=== PATIENT | male | born 1960 | race Asian ===

== ENCOUNTER 2020-09-30 09:37 | Outpatient (REF) | payer OTHER, SELFPAY ==
[2020-09-30 10:06] LABS: MANUAL DIFF FLAG NO
[2020-09-30 10:16] LABS: Basophils Percent Auto 0.2 % (0-2); Eosinophils Absolute Auto 0.1 X10*3/uL (0.0-0.4); Eosinophils Percent Auto 1.2 % (0-4); Hematocrit 41.2 % (42-52); Hemoglobin 13.8 g/dl (14.0-18.0); Imm Gran Abs Auto 0.02 X10*3/uL (0.00-0.03); Imm Gran Pct Auto 0.3 % (0.0-0.4); Lymphocytes Absolute Auto 2.1 X10*3/uL (1.2-4.9); Lymphocytes Percent Auto 33.3 % (20-40); Mean Corpuscular HGB Conc 33.5 g/dl (31.0-36.0); Mean Corpuscular Hemoglobin 30.1 pg (27.0-33.0); Monocytes Absolute Auto 0.6 X10*3/uL (0.1-1.2); Monocytes Percent Auto 9.2 % (2-11); Neutrophils Absolute Auto 3.6 X10*3/uL (2.0-8.3); Neutrophils Percent Auto 55.8 % (45-73); Platelet Count 204 X10*3/uL (160-400); Red Blood Count 4.58 X10*6/uL (4.60-5.80); White Blood Count 6.4 X10*3/uL (4.8-10.8)
[2020-09-30 10:34] LABS: Glucose Urine UA NEG (NEG); Leukocyte Esterase Urine NEG (NEG); Nitrite Urine NEG (NEG); PH 6.5 (5.0-8.0); Urine Blood NEG (NEG); Urine Ketones NEG (NEG); Urine Protein NEG (NEG-TRACE)
[2020-09-30 10:35] LABS: Alanine Aminotransferase 31 U/L (0-40); Albumin Level 4.2 g/dL (3.5-5.0); Alkaline Phosphatase 63 U/L (39-117); Anion Gap 10 (12-20); Aspartate Amino Transferase 23 U/L (5-37); Bilirubin Total 0.6 mg/dL (0.0-1.0); Blood Urea Nitrogen 15 mg/dL (9-16); Calcium 8.5 mg/dL (8.4-10.2); Carbon Dioxide 30 mmol/L (22-29); Chloride 103 mmol/L (96-108); Cholesterol 153 mg/dL; Estimated Glomerular Filt Rate > 60; Glucose Fasting 111 mg/dL (60-99); HDL Cholesterol 33 mg/dL; LDL Cholesterol Calculated 52 mg/dl; Potassium 4.3 mmol/l (3.3-5.1); Sodium 139 mmol/L (135-145); Total Protein 7.2 g/dL (6.5-8.0); Triglycerides 341 mg/dL
[2020-09-30 10:42] LABS: Appearance Urine CLEAR; Color Urine YELLOW
[2020-09-30 10:59] LABS: Prostate Specific Antigen Scr 0.99 ng/mL (<0.05-4.0)
[2020-09-30 11:02] LABS: TSH reflex Free T4 1.46 mIU/mL (0.32-4.0); Vitamin D 25-OH Total 33.3 ng/mL (>30)
== END 2020-09-30 09:38 | disposition home or self-care (01) ==
LOC: HO.LAB 09:37
PROVIDERS: PCP Internal Medicine; Visit Provider Internal Medicine
DX: J30.1 Allergic rhinitis due to pollen (principal); K59.00 Constipation, unspecified; E78.00 Pure hypercholesterolemia, unspecified; E55.9 Vitamin D deficiency, unspecified; I10 Essential (primary) hypertension; Z00.00 Encounter for general adult medical examination without abnormal findings; R73.01 Impaired fasting glucose
CPT/HCPCS: 36415; 80053; 80061; 81003; 82306; 84153; 84443; 85025

== ENCOUNTER 2021-12-01 08:41 | Outpatient (REF) | payer OTHER, SELFPAY ==
[2021-12-01 09:20] LABS: MANUAL DIFF FLAG NO
[2021-12-01 09:45] LABS: Basophils Percent Auto 0.1 % (0-2); Eosinophils Percent Auto 0.6 % (0-4); Hematocrit 42.6 % (42.0-52.0); Hemoglobin 14.4 g/dl (14.0-18.0); Imm Gran Abs Auto 0.01 X10*3/uL (0.00-0.03); Imm Gran Pct Auto 0.1 % (0.0-0.4); Lymphocytes Absolute Auto 2.5 X10*3/uL (1.2-4.9); Lymphocytes Percent Auto 35.5 % (20-40); Mean Corpuscular HGB Conc 33.8 g/dl (31.0-36.0); Mean Corpuscular Hemoglobin 30.3 pg (27.0-33.0); Mean Corpuscular Volume 89.5 fL (80.0-98.0); Mean Platelet Volume 8.1 fL (9.4-12.4); Monocytes Absolute Auto 0.5 X10*3/uL (0.1-1.2); Monocytes Percent Auto 7.4 % (2-11); Neutrophils Percent Auto 56.3 % (45-73); Platelet Count 200 X10*3/uL (160-400); Red Blood Count 4.76 X10*6/uL (4.60-5.80); Red Cell Distribution Width 12.2 % (11.0-16.0); White Blood Count 7.1 X10*3/uL (4.8-10.8)
[2021-12-01 10:00] LABS: Estimated Average Glucose 123 mg/dL; Hemoglobin A1c % 5.9 %
[2021-12-01 10:20] LABS: Alanine Aminotransferase 22 U/L (0-40); Albumin Level 4.4 g/dL (3.5-5.0); Alkaline Phosphatase 64 U/L (39-117); Anion Gap 15 (12-20); Aspartate Amino Transferase 18 U/L (5-37); Bilirubin Total 0.9 mg/dL (0.0-1.0); Blood Urea Nitrogen 17 mg/dL (9-16); Calcium 9.3 mg/dL (8.4-10.2); Carbon Dioxide 25 mmol/L (22-29); Chloride 103 mmol/L (96-108); Cholesterol 169 mg/dL; Estimated Glomerular Filt Rate > 60; Glucose Fasting 115 mg/dL (60-99); HDL Cholesterol 32 mg/dL; Potassium 4.4 mmol/L (3.3-5.1); Sodium 139 mmol/L (135-145); Total Protein 7.7 g/dL (6.5-8.0); Triglycerides 418 mg/dL
[2021-12-01 10:27] LABS: Appearance Urine HAZY; Color Urine YELLOW; Glucose Urine UA NEG (NEG); Leukocyte Esterase Urine NEG (NEG); Nitrite Urine NEG (NEG); PH 5.5 (5.0-8.0); Specific Gravity - Urine >= 1.030 (1.005-1.025); Urine Blood NEG (NEG); Urine Ketones NEG (NEG); Urine Protein NEG (NEG-TRACE)
[2021-12-01 10:30] LABS: TSH reflex Free T4 2.03 uIU/mL (0.32-4.0); Vitamin D 25-OH Total 27.9 ng/mL (>30)
== END 2021-12-01 08:42 | disposition home or self-care (01) ==
LOC: HO.LAB 08:41
PROVIDERS: PCP Internal Medicine; Visit Provider Internal Medicine
DX: E78.00 Pure hypercholesterolemia, unspecified (principal); E55.9 Vitamin D deficiency, unspecified; I10 Essential (primary) hypertension; R73.01 Impaired fasting glucose
CPT/HCPCS: 36415; 80053; 80061; 81003; 82306; 83036; 84443; 85025

== ENCOUNTER 2022-04-06 09:48 | Outpatient (REF) | payer OTHER, SELFPAY ==
[2022-04-06 10:06] LABS: MANUAL DIFF FLAG NO
[2022-04-06 10:31] LABS: Basophils Percent Auto 0.2 % (0-2); Eosinophils Absolute Auto 0.1 X10*3/uL (0.0-0.4); Eosinophils Percent Auto 0.9 % (0-4); Hematocrit 39.5 % (42.0-52.0); Hemoglobin 13.8 g/dl (14.0-18.0); Imm Gran Abs Auto 0.02 X10*3/uL (0.00-0.03); Imm Gran Pct Auto 0.3 % (0.0-0.4); Lymphocytes Absolute Auto 1.7 X10*3/uL (1.2-4.9); Mean Corpuscular HGB Conc 34.9 g/dl (31.0-36.0); Mean Corpuscular Hemoglobin 31.3 pg (27.0-33.0); Mean Corpuscular Volume 89.6 fL (80.0-98.0); Monocytes Absolute Auto 0.5 X10*3/uL (0.1-1.2); Monocytes Percent Auto 7.4 % (2-11); Neutrophils Absolute Auto 4.1 x10*3/uL (2.0-8.3); Neutrophils Percent Auto 64.2 % (45-73); Platelet Count 194 X10*3/uL (160-400); Red Blood Count 4.41 X10*6/uL (4.60-5.80); White Blood Count 6.3 X10*3/uL (4.8-10.8)
[2022-04-06 10:46] LABS: Estimated Average Glucose 117 mg/dL; Hemoglobin A1c % 5.7 %
[2022-04-06 11:21] LABS: Alanine Aminotransferase 26 U/L (0-40); Albumin Level 4.2 g/dL (3.5-5.0); Alkaline Phosphatase 66 U/L (39-117); Anion Gap 10 (12-20); Aspartate Amino Transferase 20 U/L (5-37); Bilirubin Total 0.7 mg/dL (0.0-1.0); Blood Urea Nitrogen 13 mg/dL (9-16); Calcium 8.6 mg/dL (8.4-10.2); Carbon Dioxide 27 mmol/L (22-29); Chloride 105 mmol/L (96-108); Cholesterol 191 mg/dL; Estimated Glomerular Filt Rate > 60; Glucose Fasting 114 mg/dL (60-99); HDL Cholesterol 31 mg/dL; Potassium 4.2 mmol/L (3.3-5.1); Sodium 138 mmol/L (135-145); Total Protein 7.2 g/dL (6.5-8.0); Triglycerides 464 mg/dL
[2022-04-06 11:24] LABS: Appearance Urine CLEAR; Color Urine YELLOW; Glucose Urine UA NEG (NEG); Leukocyte Esterase Urine NEG (NEG); Nitrite Urine NEG (NEG); Specific Gravity - Urine 1.025 (1.005-1.025); Urine Blood NEG (NEG); Urine Ketones NEG (NEG); Urine Protein NEG (NEG-TRACE)
[2022-04-06 11:27] LABS: TSH reflex Free T4 0.94 uIU/mL (0.32-4.0); Vitamin D 25-OH Total 27.2 ng/mL (>30)
== END 2022-04-06 09:49 | disposition home or self-care (01) ==
LOC: HO.LAB 09:48
PROVIDERS: PCP Internal Medicine; Visit Provider Internal Medicine
DX: E78.00 Pure hypercholesterolemia, unspecified (principal); I10 Essential (primary) hypertension; E55.9 Vitamin D deficiency, unspecified; R73.01 Impaired fasting glucose
CPT/HCPCS: 36415; 80053; 80061; 81003; 82306; 83036; 84443; 85025